=== PATIENT | male | born 1950 | race Caucasian/White ===

== ENCOUNTER → 2017-02-03 | Outpatient (CLI) | payer BC | LOC: SLEEPLAB 19:49 | DX: G47.33 Obstructive sleep apnea (adult) (pediatric) (principal) ==

== ENCOUNTER → 2017-03-24 | Outpatient (CLI) | payer BC ==
--- NOTE | ~2017-03-24 | SLE ---
[facility] [place] [address] POLYSOMNOGRAPHY STUDY Name: SHANTEL VANEGAS Room #: REG KAREN M.Socorro.#: [id number] Admission: 03/24/17 Attend Phys: Surya Dubon MD Discharge: Date of : 52 Report #: [id number] THIS REPORT FOR: //name// CC: Morgan Thomas DO Surya Dubon MD Prior study February 03 showed an apnea-hypopnea index of 26 events per sleep hour. Low oxygen saturation 81%, spending 14% of recording time less than 90%. COMMENTS: No significant arrhythmias noted. Titrated at 5, 6, 7, 8 and 9 cm water pressure. At 9 cm water pressure, the patient was seen for 68 minutes of which 17 minutes was in REM sleep. Central apnea 1, hypopnea 2. Apnea-hypopnea index 2.6 events per recording hour. Low oxygen saturation 91%. At 8 cm, the patient was seen for 36 minutes of which 18 minutes was in REM sleep. Apnea-hypopnea index was 0 events per sleep hour, low sat of 90%. IMPRESSION: 1. History of obstructive sleep apnea/hypopnea, G47.33. 2. Positional sleep apnea. 3. No significant arrhythmia. 4. Throughout the night, periodic limb movement with arousal index was 6 events per sleep hour. 5. CPAP improves the patient's apnea-hypopnea index, snoring and desaturation. SUGGESTIONS: 1. In addition to specific therapy, the patient should be cautioned regarding driving or operating dangerous machinery unless fully alert. 2. The patient should be cautioned regarding the use of respiratory depressants. 3. Weight loss and TSH if appropriate. 4. Further discussion regarding restless legs and periodic limb movement is recommended. 5. Oral appliance or appropriate surgery may be considered with appropriate followup. 6. The usual sleep apnea suggestions are recommended. 7. An auto-titrating CPAP between 6 and 12 cm water pressure is initially recommended. During our study, an [place] View large mask was used with heated humidity. 8. If signs and symptoms not improved with therapy, further evaluation is recommended. Please do not hesitate to contact me if I may be of further assistance. <ELECTRONICALLY SIGNED> By: Tip Roberts MD 03/27/17 [id number] Tip Roberts MD /nt
== END ==
LOC: SLEEPLAB 03-17 11:22
DX: G47.30 Sleep apnea, unspecified (principal)